=== PATIENT | female | born 1960 | race Caucasian/White ===

== ENCOUNTER 2019-01-02 16:08 | Emergency (ER) | payer OTHER ==
[2019-01-02] MEDS ORDERED: ASPIRIN 81 MG TABLET, CHEWABLE PO ONE (16:23)
--- NOTE | 2019-01-02 16:26 | ER Document Report ---
ED Medical Screen (RME) - General Chief Complaint: Chest Pain Stated Complaint: CHEST PAIN Time Seen by Provider: 01/02/19 16:22 Mode of Arrival: Ambulatory Information source: Patient Notes: 58-year-old female presented to ED for complaint of feeling tight in her chest and left arm. She states she was dizzy. She was states she was at a store and she has a watch yoselin this shows her pulse and if so she was at 114 at the store. She states she came more anxious and the pain in her chest and arm became worse. She does not have any cardiac history that she knows. She states she does not have any actual pain tightness. She states that she used to smoke about 10 years ago but has not smoked in 10 years. She does drink weekly. Patient is alert oriented respirations regular and unlabored speaking in full sentences walks with a even steady gait. I have greeted and performed a rapid initial assessment of this patient. A comprehensive ED assessment and evaluation of the patient, analysis of test results and completion of medical decision making process will be conducted by an additional ED providers. - Related Data Allergies/Adverse Reactions: Penicillins Allergy (Verified 01/02/19 16:10) Physical Exam - Vital signs Vitals: Temp Pulse Resp BP Pulse Ox 97.6 F 108 H 17 150/86 H 97 01/02/19 16:18 01/02/19 16:18 01/02/19 16:18 01/02/19 16:18 01/02/19 16:18 Course - Vital Signs Vital signs: Temp Pulse Resp BP Pulse Ox 97.6 F 108 H 17 150/86 H 97 01/02/19 16:18 01/02/19 16:18 01/02/19 16:18 01/02/19 16:18 01/02/19 16:18
--- NOTE | 2019-01-02 17:12 | RADIOLOGY REPORT (SQ) ---
EXAM DESCRIPTION: CHEST 2 VIEWS COMPLETED DATE/TIME: 01/02/2019 4:55 pm REASON FOR STUDY: chest tight short of breath COMPARISON: None. EXAM PARAMETERS: NUMBER OF VIEWS: two views TECHNIQUE: Digital Frontal and Lateral radiographic views of the chest acquired. RADIATION DOSE: NA LIMITATIONS: none FINDINGS: LUNGS AND PLEURA: Nodular opacity of the left apex, likely 1st rib osteophyte. MEDIASTINUM AND HILAR STRUCTURES: No masses or contour abnormalities. HEART AND VASCULAR STRUCTURES: Heart normal size. No evidence for failure. BONES: No acute findings. HARDWARE: None in the chest. OTHER: No other significant finding. IMPRESSION: Nodular opacity of the left apex, likely 1st rib osteophyte. Consider CT to further kishan luate. No acute airspace opacity. TECHNICAL DOCUMENTATION: JOB ID: [id number]- All Rights Reserved Reading location - IP/workstation name: [email or web address]
[2019-01-02 17:13] LABS: ABSOLUTE EOSINOPHILS # (AUTO) 0.1 10^3/uL (0.0-0.6); ABSOLUTE LYMPHOCYTES (AUTO) 1.9 10^3/uL (0.5-4.7); ABSOLUTE MONOCYTES (AUTO) 0.5 10^3/uL (0.1-1.4); ABSOLUTE NEUT (AUTO) 4.9 10^3/uL (1.7-8.2); APPEARANCE,URINE CLEAR; BASOPHILS % (AUTO) 0.2 % (0-2); BILIRUBIN,URINE NEGATIVE (NEGATIVE); COLOR,URINE YELLOW; GLUCOSE, URINE NEGATIVE (NEGATIVE); HEMATOCRIT 40.6 % (36.0-47.0); HEMOGLOBIN 13.3 g/dL (12.0-15.5); KETONES,URINE NEGATIVE (NEGATIVE); LEUKOCYTE ESTERASE,URINE NEGATIVE (NEGATIVE); LYMPHOCYTES % (AUTO) 26.1 % (13-45); MEAN CORPUSCULAR HEMOGLOBIN 29.7 pg (27.0-33.4); MEAN CORPUSCULAR HGB CONC 32.7 g/dL (32.0-36.0); MEAN CORPUSCULAR VOLUME 91 fl (80-97); MONOCYTES % (AUTO) 6.7 % (3-13); NITRITE,URINE NEGATIVE (NEGATIVE); PLATELET COUNT 215 10^3/uL (150-450); PROTEIN,URINE NEGATIVE (NEGATIVE); RED BLOOD COUNT 4.48 10^6/uL (3.72-5.28); RED CELL DISTRIBUTION WIDTH 13.9 % (11.5-14.0); TOTAL CELLS COUNTED % (AUTO) 100 %; URINE SPECIFIC GRAVITY 1.016; UROBILINOGEN,URINE NEGATIVE mg/dL (<2.0); WHITE BLOOD COUNT 7.4 10^3/uL (4.0-10.5)
[2019-01-02 17:21] LABS: ALBUMIN 4.4 g/dL (3.5-5.0); ALKALINE PHOSPHATASE 82 U/L (38-126); ANION GAP 7 (5-19); ASPARTATE AMINO TRANSFERASE 23 U/L (14-36); BILIRUBIN,DIRECT 0.3 mg/dL (0.0-0.4); BILIRUBIN,TOTAL 0.4 mg/dL (0.2-1.3); BLOOD UREA NITROGEN 22 mg/dL (7-20); CALCIUM 9.3 mg/dL (8.4-10.2); CARBON DIOXIDE 29 mmol/L (22-30); CHLORIDE 104 mmol/L (98-107); CREATINE KINASE 56 U/L (30-135); GLUCOSE 159 mg/dL (75-110); POTASSIUM 4.2 mmol/L (3.6-5.0); TOTAL PROTEIN 7.3 g/dL (6.3-8.2)
[2019-01-02 17:32] LABS: CREATINE KINASE MB 0.37 ng/mL (<4.55)
[2019-01-02 17:35] LABS: TROPONIN I < 0.012 ng/mL
--- NOTE | 2019-01-02 20:42 | EKG REPORT ---
SEVERITY:- OTHERWISE NORMAL ECG - SINUS TACHYCARDIA : Confirmed by: Dannielle Sainz MD 02-Jan-2019 20:40:51
--- NOTE | 2019-01-02 20:52 | ER Document Report ---
ED General - General Chief Complaint: Chest Pain Stated Complaint: CHEST PAIN Time Seen by Provider: 01/02/19 16:22 Mode of Arrival: Ambulatory - HPI Notes: Patient is a 58-year-old female who presents to the emergency department for evaluation. She is here visiting her daughter from [place]. She was walking through an antique store when she developed chest pain. She states she felt like her "world was crashing in on her." She states she had a similar sensation about 5 years ago and this turned out to be an anxiety attack. She states that she had not had one like that in several years though, so she presents to the ED for further evaluation. She states that it happened about 230 this afternoon. She took a Xanax at about 430. Her symptoms resolved. She felt somewhat short of breath, as well as some palpitations. She was concerned because her heart rate was 114 on her phone. She felt near syncopal but did not pass out. - Related Data Allergies/Adverse Reactions: Penicillins Allergy (Verified 01/02/19 16:10) Home Medications: Xanax, Ambien Past Medical History - General Information source: Patient - Social History Smoking Status: Former Smoker Frequency of alcohol use: Social Drug Abuse: None Family History: Malignancy - Leukemia and mother Patient has suicidal ideation: No Patient has homicidal ideation: No Renal/ Medical History: Denies: Hx Peritoneal Dialysis Psychiatric Medical History: Reports: Hx Anxiety Review of Systems - Review of Systems Constitutional: No symptoms reported EENT: No symptoms reported Cardiovascular: See HPI Respiratory: No symptoms reported Gastrointestinal: See HPI Genitourinary: No symptoms reported Musculoskeletal: No symptoms reported Skin: No symptoms reported Neurological/Psychological: No symptoms reported Physical Exam - Vital signs Vitals: Temp Pulse Resp BP Pulse Ox 97.6 F 108 H 17 150/86 H 97 01/02/19 16:18 01/02/19 16:18 01/02/19 16:18 01/02/19 16:18 01/02/19 16:18 - Notes Notes: Vital signs reviewed, please refer to chart. Head is normocephalic, atraumatic. Pupils equal round, reactive to light. Neck is supple without meningismus. Heart is regular rate and rhythm. Lungs are clear to auscultation bilaterally. Abdomen is soft, nontender, normoactive bowel sounds throughout. Extremities without cyanosis, clubbing. Posterior calves are nontender. Peripheral pulses are equal. Skin is warm and dry. Patient is awake, alert, neurological exam is nonfocal. Course - Re-evaluation Re-evalutation: 01/02/19 20:57 Patient presents emergency department for evaluation. Besides being a formulary smoker and being overweight, she does not really have any significant risk factors. Her symptoms seem much more consistent with anxiety. This was explained to the patient and she voiced understanding. I also explained to her that I could not rule out coronary artery disease, that I strongly encouraged her to follow-up with her primary care provider to make sure her risk factors are being aggressively controlled. She voiced understanding to this as well. Otherwise she has no chest pain or anxious feeling at this time. She continues to have Xanax for treatment of her symptoms recur. She is to return to the ED with worsening or new concerning symptoms of any sort. 01/02/19 20:59 Miguel Ángel's note I did notify the patient of the finding on her chest x-ray. It was likely a first rib osteophyte per radiology, but further evaluation such as CT scan be indicated. Findings were explained to the patient and she was told to follow this up with her primary care provider. She voiced understanding. - Vital Signs Vital signs: Temp Pulse Resp BP Pulse Ox 97.6 F 108 H 21 H 130/81 H 99 01/02/19 16:18 01/02/19 16:18 01/02/19 19:01 01/02/19 19:01 01/02/19 19:01 - Laboratory Result Diagrams: 01/02/19 16:39 01/02/19 16:39 Laboratory results interpreted by me: 01/02/19 16:39 BUN 22 H Glucose 159 H - Diagnostic Test Radiology reviewed: Reports reviewed Radiology results interpreted by me: 01/02/19 20:57 Chest X-Ray 01/02/19 16:22 IMPRESSION: Nodular opacity of the left apex, likely 1st rib osteophyte. Consider CT to further evaluate. No acute airspace opacity. Discharge - Discharge Clinical Impression: Chest pain, Anxiety Condition: Stable Disposition: HOME, SELF-CARE Instructions: Anxiety ([facility]), Chest Pain of Unclear Cause ([facility]) Additional Instructions: Follow-up with your primary care provider upon returning to [place]. There was a finding on the first rib on the left, consistent with an osteophyte. This should be further characterized with repeat imaging or CT scan. Please discuss this with your primary care provider as well. Return to the emergency departmen t with worsening or new concerning symptoms of any sort.
[2019-01-02 21:19] VITALS: BP 152/90
== END 2019-01-02 21:16 | disposition home or self-care (01) ==
LOC: ER 16:08
DX: R07.9 Chest pain, unspecified (principal); F41.9 Anxiety disorder, unspecified; E66.3 Overweight; R06.02 Shortness of breath; R00.2 Palpitations; Z88.0 Allergy status to penicillin; Z79.899 Other long term (current) drug therapy; Z87.891 Personal history of nicotine dependence
CPT/HCPCS: 36415; 71046; 80053; 81001; 82550; 82553; 83690; 84484; 85025; 93005; 93010